=== PATIENT | male | born 1990 | race African-American/Black ===

== ENCOUNTER 2019-09-03 10:00 | Outpatient (CLI) | payer BC ==
--- NOTE | 2019-09-03 10:47 | CT ---
SINUS CT WITHOUT CONTRAST: HISTORY: Daily frontal headache and frontal pressure. COMPARISON: None. FINDINGS: Visualized brain parenchyma has appropriate attenuation. No evidence of ventricular dilatation. Bilateral ocular lenses are appropriately located. Both globes are intact. Retrobulbar fat is preserv ed. Symmetric attenuation the optic nerves and ocular rectus muscles. Aerodigestive tract is patent. No mucosal abnormality. Mandible and maxilla are intact. Pterygopalatine fossae are symmetric. Pterygoid plates are intact. Zygomatic arches are intact. Coronal images demonstrate symmetric bilateral ostiomeatal complexes. Minimal leftward deviation of t he nasal septum that is intact. A small bony spur is noted. The osseous margins of the sinuses and orbits are maintained. Adequate mastoid air cell aeration. There is no significant opacification of the frontal sinuses, ethmoid air cells, sphenoid sinuses or maxillary sinuses. IMPRESSION: Unremarkable sinus CT. Transcribed Date/Time: 09/03/2019 10:57 AM
== END 2019-09-03 10:01 | disposition home or self-care (01) ==
LOC: SCSCT 10:00
PROVIDERS: ATTEND Family Medicine
DX: R51 Headache (principal)

== ENCOUNTER 2019-09-17 10:38 | Outpatient (CLI) | payer BC ==
--- NOTE | 2019-09-17 13:18 | MRI ---
MRI LUMBAR SPINE WITHOUT CONTRAST: HISTORY: Lumbar disk degeneration. Chronic low back pain, worsening since June. COMPARISON: None. FINDINGS: Appropriate T1 marrow signal intensity of the lumbar vertebrae. Lumbar spine vertebral body height i s maintained. No fracture. No significant STIR hyperintensity to suggest vertebral body edema or li gamentous injury. There is a hemangioma at th eS1 level. Appropriate signal intensity of the visualized paraspinal muscles and solid organs. Conus medullaris terminates at the mid L1 level. T12-L1: Adequate disk hydration. No significant central canal stenosis or significant neural forami nal narrowing. L1-L2: Adequate disk hydration. No significant central canal stenosis or significant neural foramin al narrowing. L2-L3: Adequate disk hydration. No significant central canal stenosis or significnat neural foramin al narrowing. L3-L4: Adequate disk hydration. No significant central canal stenosis or significant neural foramin al narrowing. Minimal encroachment upon bilateral subarticular zones without significant mass effect or obscuration of either traversing L4 nerve roots. L4-L5: Mild loss of disk space height. Broad-based disk bulge with a central/right subarticular her niation. There is associated T2 and STIR hyperintensity suggesting an annular fissure. There is sev ere stenosis of the thecal sac. There is near-complete obscuration of the traversing right L5 nerve root. There is displacement of the traversing right S1 nerve root. There is mass effect and partial obscuration of the traversing left L5 nerve root. Mild bilateral foraminal narrowing due to disk ma terial. L5-S1: There is a central/left subarticular disk herniation. There is a T2 hyperintensity in the le ft subarticular zone compatible with an annular fissure, abutting the traversing left S1 nerve root. There is mild narrowing of the thecal sac. There is encroachment upon the right subarticular zone w ith partial obscuration of the right S1 nerve root secondary to disk material. There is near-complet e obscuration of the traversing left S1 nerve root due to disk material. There is also contact upon the traversing left S2 nerve root, due to disk material. IMPRESSION: 1. 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 2. Significant narrowing of the right subarticular zone at L4-L5 with mass effect and near complete obscuration of the traversing right L5 nerve root. Posterior displacement of the right S1 nerve root . There is partial obscuration of the traversing left L5 nerve root. 3. Near-complete obscuration of the traversing left S1 nerve root. Mass effect without displacement of the traversing left S2 nerve root. There is partial obscuration of traversing right S1 nerve natalya carmine. POS: [facility]
== END 2019-09-17 10:39 | disposition home or self-care (01) ==
LOC: TBSIIMAG 10:38
PROVIDERS: ATTEND Neurological Surgery
DX: M51.16 Intervertebral disc disorders with radiculopathy, lumbar region (principal); M51.36 Other intervertebral disc degeneration, lumbar region; M51.27 Other intervertebral disc displacement, lumbosacral region; M51.87 Other intervertebral disc disorders, lumbosacral region; M48.061 Spinal stenosis, lumbar region without neurogenic claudication; G54.8 Other nerve root and plexus disorders
CPT/HCPCS: 72148

== ENCOUNTER 2020-02-12 05:45 | Outpatient (CLI) | payer BC, OTHER ==
[2020-02-12 14:47] LABS: Mean Corpuscular HGB CONC 33.4 g/dL (32.0-36.0); Mean Corpuscular Hemoglobin 32.2 pg (27.0-31.0); Mean Corpuscular Volume 96.4 fL (78.0-98.0); Platelet Count 182 thou/uL (130-400); Red Blood Cell (RBC) Count 4.66 mill/uL (4.70-6.10); White Blood Cell (WBC) Count 6.3 thou/uL (4.8-10.8)
[2020-02-12 15:22] LABS: Anion Gap 10 mmol/L (10-20); BUN (Urea Nitrogen) 9 mg/dL (8.9-20.6); Calc. Creatinine Clearance 0 mL/min (70-130); Calcium 9.5 mg/dL (7.8-10.44); Carbon Dioxide 29 mmol/L (22-29); Chloride 106 mmol/L (98-107); Estimated GFR-MDRD Greater than 90; Glucose 88 mg/dL (70-105); Potassium 4.3 mmol/L (3.5-5.1); Sodium 141 mmol/L (136-145)
[2020-02-13 13:25] LABS: SARS-CoV-2 MS2 Positive; SARS-CoV-2 N Gene Negative; SARS-CoV-2 S Gene Negative; SARS-CoV-2 orf1ab Negative
== END 2020-02-12 05:46 | disposition home or self-care (01) ==
LOC: LABBT 05:45
PROVIDERS: ATTEND Neurological Surgery
DX: Z01.818 Encounter for other preprocedural examination (principal); Z11.59 Encounter for screening for other viral diseases; M54.16 Radiculopathy, lumbar region
CPT/HCPCS: 80048; 85027; 87635; 93005; 93010; U0003

== ENCOUNTER 2020-02-17 06:12 | Day surgery (SDC) | payer BC ==
[2020-02-10 11:48] VITALS: BMI 26.7
[2020-02-17] MEDS ORDERED: Lidocaine 2% Jelly 5 ML TUBE ONE (06:40)
[2020-02-17] MEDS ORDERED: Fentanyl 100 MCG/2 ML VIAL ONE (06:40)
[2020-02-17] MEDS ORDERED: Levofloxacin 500 mg/D5W 100 ml Premix Bag ONE (07:13)
[2020-02-17] MEDS ORDERED: Clindamycin/D5W 900 mg/50 ml Premix Bag ONE (07:13)
[2020-02-17] MEDS ORDERED: Midazolam HCl 2 mg/2 ml Vial ONE (07:29)
[2020-02-17] MEDS ORDERED: SUGAMMADEX SODIUM 200 MG/2 ML VIAL ONE (08:53)
--- NOTE | 2020-02-17 09:05 | OP ---
DATE OF PROCEDURE: 02/17/2020 PICKLE SORTER: Marie Hendrickson PA-C PROCEDURE PERFORMED: Right L4-L5 and right L5-S1 microdiskectomy. DESCRIPTION OF PROCEDURE: The patient was brought to the operating room and intubated. He was rolled in prone position on gel-filled chest rolls. An incision was made exposing L4 through S1 and the level was confirmed by x-ray. We performed right L4-L5 and right L5-S1 hemilaminectomies and removed the ligament, identified the right L5 and right S1 and beneath each was identified a partially calcified chronic disk herniation. In particular, right L4-L5, there was some acute component. All disk material was removed and the disk spaces incised and debrided of loose disk material. A complete decompression of right L5 and right S1 was achieved. The wound was extensively irrigated and MAC hemostasis was secured. Vancomycin powder was applied and the wound was then closed in anatomic layers. Job ID: [id number]
[2020-02-17] MEDS ORDERED: Morphine 4 MG/ML VIAL ONE (09:12)
[2020-02-17] MEDS ORDERED: Meperidine HCl/PF 25 MG/ML VIAL ONE (09:13)
[2020-02-17] MEDS ORDERED: HYDROcodone/Acetaminophen 5/325 mg Tablet ONE (10:28)
[2020-02-17] MEDS ORDERED: Dexamethasone 20 MG/5 ML VIAL ONE (11:40)
[2020-02-17] MEDS ORDERED: Rocuronium Bromide 10 MG/ML (10ML VIAL) ONE (11:40)
[2020-02-17] MEDS ORDERED: PROPOFOL 200 MG/20 ML VIAL ONE (11:40)
[2020-02-17] MEDS ORDERED: Glycopyrrolate 0.2 MG/ML 5 ML SYRINGE ONE (11:40)
[2020-02-17] MEDS ORDERED: Lidocaine 1% PF 5 ML VIAL ONE (11:40)
[2020-02-17] MEDS ORDERED: Ondansetron PF 4 MG/2 ML Vial ONE (11:40)
== END 2020-02-17 11:55 | disposition home or self-care (01) ==
LOC: SDC 06:12
PROVIDERS: ATTEND Neurological Surgery
PROC: 01NB0ZZ Release Lumbar Nerve, Open Approach (ICD-10-PCS; principal; 2020-02-17)
DX: M51.16 Intervertebral disc disorders with radiculopathy, lumbar region (principal); M51.17 Intervertebral disc disorders with radiculopathy, lumbosacral region; Z79.899 Other long term (current) drug therapy; Z88.0 Allergy status to penicillin; Z91.018 Allergy to other foods
CPT/HCPCS: 76000; J1100; J1956; J2175; J2250; J2270; J2405; J2704; J3010; J3370; J3490

== ENCOUNTER 2020-10-08 10:38 | Emergency (ER) | payer BC, OTHER | END 2020-10-08 12:54 | disposition home or self-care (01) | LOC: ERS 10:38 | DX: L20.9 Atopic dermatitis, unspecified (principal) | CPT/HCPCS: 99282 ==

== ENCOUNTER 2020-11-21 15:19 | Emergency (ER) | payer OTHER, BC | END 2020-11-21 16:30 | disposition home or self-care (01) | LOC: ERS 15:19 | DX: S70.11XA Contusion of right thigh, initial encounter (principal); W54.0XXA Bitten by dog, initial encounter | CPT/HCPCS: 99282 ==

== ENCOUNTER 2020-11-25 22:21 | Emergency (ER) | payer OTHER, BC | END 2020-11-26 01:07 | disposition home or self-care (01) | LOC: ERS 22:21 | DX: S70.11XA Contusion of right thigh, initial encounter (principal); W54.0XXA Bitten by dog, initial encounter | CPT/HCPCS: 99283 ==